=== PATIENT | female | born 1955 | race Caucasian/White ===

== ENCOUNTER 2021-08-03 23:59 | Emergency (ER) | payer OTHER ==
[~2021-08-03] VITALS: Ht 157.5 cm; Wt 93.4 kg
[2021-08-04] MEDS ORDERED: ZOLOFT100 MG PO (00:15)
[2021-08-04] MEDS ORDERED: ACETAMINOPHEN650 M2 PO (04:34)
[2021-08-04] MEDS ORDERED: MEDROLPACK PO (04:34)
[2021-08-04] MEDS ORDERED: NORFLEX100MG PO (04:34)
== END 2021-08-04 04:39 | disposition home or self-care (01) ==
LOC: ER 23:59
DX: S13.4XXA Sprain of ligaments of cervical spine, initial encounter (principal); S20.219A Contusion of unspecified front wall of thorax, initial encounter; S80.212A Abrasion, left knee, initial encounter; V49.9XXA Car occupant (driver) (passenger) injured in unspecified traffic accident, initial encounter; Y93.9 Activity, unspecified; Y92.413 State road as the place of occurrence of the external cause; Y99.9 Unspecified external cause status; Z88.6 Allergy status to analgesic agent